=== PATIENT | female | born 1960 | race Asian ===

== ENCOUNTER → 2023-10-02 | Emergency (ER) | payer BC ==
[~2023-10-02] MED LIST: MECLIZINE HCL 12.5 MG TAB ONE
--- NOTE | 2023-10-02 13:21 | RAD REPORT ---
EXAM DESCRIPTION: CT - Head Brain Wo Cont - 10/02/2023 1:10 pm CLINICAL HISTORY: DIZZINESS Headache, dizziness, nausea COMPARISON: No comparisons TECHNIQUE: All CT scans are performed using dose optimization technique as appropriate and may inclu de automated exposure control or mA/KV adjustment according to patient size. FINDINGS: No intracranial hemorrhage, hydrocephalus or extra-axial fluid collection.No areas of brai n edema or evidence of midline shift. The paranasal sinuses and mastoids are clear. The calvarium is intact. IMPRESSION: No acute intracranial abnormality.
[2023-10-02 14:44] LABS: Absolute Eosinophils 0.2 K/uL (0-0.5); Absolute Lymphocytes (CBC) 3.1 K/uL (0.7-4.9); Absolute Monocytes 0.4 K/uL (0.1-1.3); Absolute Neutrophil 4.3 K/uL (1.8-8.0); Basophils % 0.3 % (0-1.3); Eosinophils % 2.5 % (0-4.4); Hematocrit 33.6 % (36.0-45.0); Hemoglobin 11.3 g/dL (12.0-15.0); Lymphocytes % 38.2 % (15.3-44.8); MCH 30.1 pg (27.0-35.0); MCHC 33.7 g/dL (32.0-36.0); MCV 89.4 fL (80-100); MPV 8.5 fL (7.6-11.3); Monocytes % 5.1 % (3.3-12.3); Neutrophils % 53.9 % (41.7-73.7); Platelets 254 thou/uL (152-406); RBC Red Blood Cell Count 3.76 M/uL (3.86-4.86); Red Cell Distribution Width 13.4 % (12.1-15.2)
[2023-10-02 14:53] LABS: ALT/SGPT 29 U/L (13-56); AST/SGOT 14 U/L (15-37); Albumin 3.8 g/dL (3.4-5.0); Albumin/Globulin Ratio 0.9 (1.1-1.8); Alkaline Phosphatase 83 U/L (45-117); Anion Gap 10.8 mEq/L (5.0-15.0); BUN Blood Urea Nitrogen 14 mg/dL (7-18); Bicarbonate 24 mEq/L (21-32); Bilirubin Total 0.4 mg/dL (0.2-1.0); Globulin 4.1 g/dL (2.3-3.5); Glomerular Filtration Rate 60 ml/min (=/>90); Glucose Level 176 mg/dL (74-106); Magnesium 1.9 mg/dL (1.6-2.4); Potassium 3.8 mEq/L (3.5-5.1); Protein, Total 7.9 g/dL (6.4-8.2); Sodium Level 140 mEq/L (136-145); Troponin High Sensitivity 3.7 pg/mL (<58.9)
[2023-10-02 14:54] LABS: Bilirubin Direct < 0.1 mg/dL (0-0.2); Bilirubin Indirect, Calculated ND mg/dL (0.2-0.8)
--- NOTE | 2023-10-02 14:58 | ER ---
Nurse's Notes [facility] Name: Dayanara Son Age: 62 yrs Sex: Female : 1960 Arrival Date: 10/02/2023 Time: 12:12 Bed 12 Private MD: Diagnosis: Peripheral vertigo, headache Presentation: 10/01 12:26 Chief complaint: Patient states: LAU, dizzy, nausea, not feeling well since Sunday. ll1 Coronavirus screen: Client denies travel out of the [place] in the last 14 days. At this time, the client does not indicate any symptoms associated with coronavirus-19. Ebola Screen: Patient denies travel to an Ebola-affected area in the 21 days before illness onset. Initial Sepsis Screen: Does the patient meet any 2 criteria? No. Patient's initial sepsis screen is negative. Does the patient have a suspected source of infection? No. Patient's initial sepsis screen is negative. Risk Assessment: Do you want to hurt yourself or someone else? Patient reports no desire to harm self or others. Onset of symptoms was September 30, 2023. 12:26 Method Of Arrival: Ambulatory ll1 12:26 Acuity: CALLY 3 ll1 Triage Assessment: 12:27 General: Appears uncomfortable, Behavior is calm, cooperative, appropriate for age. ll1 Pain: Complains of pain in head Pain currently is 7 out of 10 on a pain scale. Pain began 4 hours ago. Neuro: Reports dizziness, headache. GI: Reports nausea. 15:05 Headache History: Denies prior headaches. Pain: Also complains of no other associated tl4 symptoms. Historical: - Allergies: 12:25 No Known Allergies; ll1 - PMHx: 12:25 Diabetes mellitus; Hypercholesterolemia; ll1 - PSHx: 12:25 None; ll1 - Immunization history:: Adult Immunizations up to date. - Social history:: Smoking status: Patient denies any tobacco usage or history of. Screenin:31 [facility] ED Fall Risk Assessment (Adult) History of falling in the last 3 months, tl4 including since admission No falls in past 3 months (0 pts) Confusion or Disorientation No (0 pts) Intoxicated or Sedated No (0 pts) Impaired Gait No (0 pts) Mobility Assist Device Used No (0 pt) Altered Elimination No (0 pt) Score/Fall Risk Level 0 - 2 = Low Risk Oriented to surroundings, Maintained a safe environment, Educated pt \T\ family on fall prevention, incl call for assistance when getting out of bed, Assessed \T\ reinforced patient's understanding of fall precautions, Hourly rounding (assess needs \T\ fall precautionary measures) done, Used ambulatory aids as needed (educated on \T\ assisted with), Used gait belt as appropriate. Abuse screen: Denies threats or abuse. Denies injuries from another. Nutritional screening: No deficits noted. Tuberculosis screening: No symptoms or risk factors identified. Assessment: 13:11 Reassessment: In CT. Will go to room 12 afterwards. hb 13:45 General: Appears in no apparent distress. Behavior is flat. Pain: Denies pain. Neuro: tl4 Level of Consciousness is awake, alert, obeys commands, Oriented to person, place, time, situation, Moves all extremities. Speech is normal, Facial symmetry appears normal, Reports dizziness. Cardiovascular: Capillary refill < 3 seconds Patient's skin is warm and dry. Rhythm is sinus rhythm. Respiratory: Airway is patent Respiratory effort is even, unlabored, Respiratory pattern is regular, symmetrical, Breath sounds are clear bilaterally. GI: No deficits noted. No signs and/or symptoms were reported involving the gastrointestinal system. : No deficits noted. No signs and/or symptoms were reported regarding the genitourinary system. EENT: No deficits noted. No signs and/or symptoms were reported regarding the EENT system. Derm: No deficits noted. No signs and/or symptoms reported regarding the dermatologic system. Musculoskeletal: No deficits noted. No signs and/or symptoms reported regarding the musculoskeletal system. 14:31 Reassessment: Patient and/or family updated on plan of care and expected duration. Pain tl4 level reassessed. Patient is alert, oriented x 3, equal unlabored respirations, skin warm/dry/pink. Pt states dizziness is much better. MD Haynes aware Patient states symptoms have improved. 15:04 Reassessment: Patient and/or family updated on plan of care and expected duration. Pain tl4 level reassessed. Patient is alert, oriented x 3, equal unlabored respirations, skin warm/dry/pink. Patient states feeling better. Vital Signs: 12:26 BP 158 / 90; Pulse 84; Resp 18; Temp 97.5; Pulse Ox 100% ; Weight 62 kg; Height 5 ft. 6 ll1 in. ; Pain 7/10; 14:30 BP 143 / 79; Pulse 71; Resp 18; Pulse Ox 96% on R/A; Pain 0/10; tl4 15:04 BP 134 / 75; Pulse 66; Resp 16; Temp 97.5(TE); Pulse Ox 97% on R/A; Pain 0/10; tl4 12:26 Body Mass Index 22.06 (62.00 kg, 167.64 cm) ll1 12:26 Pain Scale: Adult ll1 14:30 Pain Scale: Adult tl4 15:04 Pain Scale: Adult tl4 ED Course: 12:18 Patient arrived in ED. mg5 12:27 Triage completed. ll1 12:27 Arm band placed on. ll1 12:41 Miguel Haynes MD is Attending Physician. sp3 13:11 CT Head Brain wo Cont In Process Unspecified. EDMS 13:38 Brendan Davis, RN is Primary Nurse. tl4 14:28 Basic Metabolic Panel Sent. tl4 14:28 CBC with Diff Sent. tl4 14:28 LFT's Sent. tl4 14:28 Magnesium Sent. tl4 14:28 Troponin HS Sent. tl4 14:29 Initial lab(s) drawn, by me, sent to lab. Inserted saline lock: 22 gauge in left tl4 forearm, using aseptic technique. Blood collected. 14:32 Patient has correct armband on for positive identification. Placed in gown. Bed in low tl4 position. Call light in reach. Side rails up X2. Adult w/ patient. Provided Education on: ED process. Client placed on continuous cardiac and pulse oximetry monitoring. NIBP monitoring applied. business education instructor on. Door closed. Noise minimized. Lights dimmed. Moved to private room. Warm blanket given. 15:05 No provider procedures requiring assistance completed. IV discontinued, intact, tl4 bleeding controlled, No redness/swelling at site. Pressure dressing applied. Administered Medications: 13:57 Drug: Meclizine PO 25 mg PO once Route: PO; tl4 14:28 Follow up: Response: No adverse reaction; Other tl4 Medication: 14:31 VIS not applicable for this client. tl4 Outcome: 14:57 Discharge ordered by . sp3 15:10 Discharged to home ambulatory, with family, tl4 15:10 Condition: stable 15:10 Discharge instructions given to patient, family, Instructed on discharge instructions, follow up and referral plans. medication usage, Demonstrated understanding of instructions, follow-up care, medications, Prescriptions given X 1, 15:11 Patient left the ED. tl4 Signatures: Dispatcher [employer] EDMS Alyce Irvin RN RN hb Lewis, Lynsay, RN RN ll1 Miguel Haynes MD MD 3 Dianna Grant [facility] Brendan Davis RN RN tl4
--- NOTE | 2023-10-02 14:58 | EDPHYS ---
Physician Documentation [facility] Name: Dayanara Son Age: 62 yrs Sex: Female : 1960 Arrival Date: 10/02/2023 Time: 12:12 Bed 12 Private MD: ED Physician Miguel Haynes HPI: 10/01 14:32 This 62 yrs old Female presents to ER via Ambulatory with complaints of sp3 Dizziness, Headache. 14:32 62-year-old female with a history of diabetes and hyperlipidemia now presents ED with sp3 chief complaint headache and dizziness described as vertigo with room spinning that started earlier today. No prior history of similar symptoms. She denies any trauma, ear ringing, vision changes, facial droop, weakness of any kind, paresthesias, numbness or tingling, dysarthria, memory loss, prior stroke, cardiovascular disease, or any other signs or symptoms on ROS or history at this time.. Historical: - Allergies: 12:25 No Known Allergies; ll1 - PMHx: 12:25 Diabetes mellitus; Hypercholesterolemia; ll1 - PSHx: 12:25 None; ll1 - Immunization history:: Adult Immunizations up to date. - Social history:: Smoking status: Patient denies any tobacco usage or history of. ROS: 14:33 Constitutional: Negative for fever, chills, and weight loss, Eyes: Negative for injury, sp3 pain, redness, and discharge, ENT: Negative for injury, pain, and discharge, Neck: Negative for injury, pain, and swelling, Cardiovascular: Negative for chest pain, palpitations, and edema, Respiratory: Negative for shortness of breath, cough, wheezing, and pleuritic chest pain, Abdomen/GI: Negative for abdominal pain, nausea, vomiting, diarrhea, and constipation, Back: Negative for injury and pain, MS/Extremity: Negative for injury and deformity, Skin: Negative for injury, rash, and discoloration, Psych: Negative for depression, anxiety, suicide ideation, homicidal ideation, and hallucinations, Allergy/Immunology: Negative for hives, rash, and allergies, Endocrine: Negative for neck swelling, polydipsia, polyuria, polyphagia, and marked weight changes, Hematologic/Lymphatic: Negative for swollen nodes, abnormal bleeding, and unusual bruising, 14:33 All other systems are negative, Exam: 14:34 Constitutional: This is a well developed, well nourished patient who is awake, alert, sp3 and in no acute distress. Head/Face: Normocephalic, atraumatic. Eyes: Pupils equal round and reactive to light, extra-ocular motions intact. Lids and lashes normal. Conjunctiva and sclera are non-icteric and not injected. Cornea within normal limits. Periorbital areas with no swelling, redness, or edema. ENT: Nares patent. No nasal discharge, no septal abnormalities noted. External auditory canals are clear. Oropharynx with no redness, swelling, or masses, exudates, or evidence of obstruction, uvula midline. Mucous membranes moist. Neck: Trachea midline, no thyromegaly or masses palpated, and no cervical lymphadenopathy. Supple, full range of motion without nuchal rigidity, or vertebral point tenderness. No Meningismus. Chest/axilla: Normal chest wall appearance and motion. Nontender with no deformity. No lesions are appreciated. Cardiovascular: Regular rate and rhythm with a normal S1 and S2. No gallops, murmurs, or rubs. Normal PMI, no JVD. No pulse deficits. Respiratory: Lungs have equal breath sounds bilaterally, clear to auscultation and percussion. No rales, rhonchi or wheezes noted. No increased work of breathing, no retractions or nasal flaring. Abdomen/GI: Soft, non-tender, with normal bowel sounds. No distension or tympany. No guarding or rebound. No evidence of tenderness throughout. Back: No spinal tenderness. No costovertebral tenderness. Full range of motion. Skin: Warm, dry with normal turgor. Normal color with no rashes, no lesions, and no evidence of cellulitis. MS/ Extremity: Pulses equal, no cyanosis. Neurovascular intact. Full, normal range of motion. Psych: Awake, alert, with orientation to person, place and time. Behavior, mood, and affect are within normal limits. 14:34 Neuro: Grossly normal neurological exam. NIH stroke scale 0. Mild horizontal nystagmus noted. Patient is vertiginous on movement., 14:53 ECG was reviewed by the Attending Physician. EKG demonstrates normal sinus rhythm at 70 sp3 bpm with normal intervals, normal QRS, normal axis, normal ST's ST segments without evidence of acute ischemia. Vital Signs: 12:26 BP 158 / 90; Pulse 84; Resp 18; Temp 97.5; Pulse Ox 100% ; Weight 62 kg; Height 5 ft. 6 ll1 in. ; Pain 7/10; 14:30 BP 143 / 79; Pulse 71; Resp 18; Pulse Ox 96% on R/A; Pain 0/10; tl4 15:04 BP 134 / 75; Pulse 66; Resp 16; Temp 97.5(TE); Pulse Ox 97% on R/A; Pain 0/10; tl4 12:26 Body Mass Index 22.06 (62.00 kg, 167.64 cm) ll1 12:26 Pain Scale: Adult ll1 14:30 Pain Scale: Adult tl4 15:04 Pain Scale: Adult tl4 MDM: 13:01 Patient medically screened. sp3 14:34 Data reviewed: vital signs, nurses notes, lab test result(s), radiologic studies. ED sp3 course: 62-year-old female with vertigo and headache. Differential diagnosis includes generalized headache, migraine, ICH, central versus peripheral vertigo, TIA/CVA spectrum, among others. I believe the symptoms however are due to peripheral vertigo. Will obtain CT scan of the head, laboratory values and administer meclizine as both diagnostic and therapeutic tool.. 14:35 ED course: Patient evaluated after 1 hour of taking meclizine. Patient is substantially sp3 improved and feels much better. CT scan of the head is negative. Laboratory values are normal. We will safely discharge patient home on p.o. meclizine and follow-up with her PCP.. 10/01 13:00 Order name: Basic Metabolic Panel; Complete Time: 14:57 3 10/01 13:00 Order name: CBC with Diff; Complete Time: 14:54 3 10/01 13:00 Order name: LFT's; Complete Time: 14:57 3 10/01 13:00 Order name: Magnesium; Complete Time: 14:57 3 10/01 13:00 Order name: Troponin HS; Complete Time: 14:57 3 10/01 13:00 Order name: CT Head Brain wo Cont; Complete Time: 13:24 3 10/01 13:00 Order name: EKG; Complete Time: 13:01 3 10/01 13:00 Order name: Cardiac monitoring; Complete Time: 13:57 sp3 10/01 13:00 Order name: EKG - Nurse/Tech; Complete Time: 14:28 sp3 10/01 13:00 Order name: IV Saline Lock; Complete Time: 14:28 sp3 10/01 13:00 Order name: Labs collected and sent; Complete Time: 14:28 sp3 Administered Medications: 13:57 Drug: Meclizine PO 25 mg PO once Route: PO; tl4 14:28 Follow up: Response: No adverse reaction; Other tl4 Disposition Summary: 10/02/23 14:57 Discharge Ordered Notes: Location: Home sp3 Condition: Stable sp3 Diagnosis - Peripheral vertigo, headache sp3 Followup: sp3 - With: Private Physician - When: Upon discharge from the Emergency Department - Reason: Continuance of care Discharge Instructions: - Discharge Summary Sheet sp3 - Vertigo sp3 Forms: - Medication Reconciliation Form sp3 - Thank You Letter sp3 - Antibiotic Education sp3 - Prescription Opioid Use sp3 - Patient Portal Instructions sp3 - Leadership Thank You Letter sp3 Prescriptions: - Meclizine 25 mg Oral Tablet - take 1 tablet ORAL route every 8 hours As needed; 30 tablet; Refills: 0, sp3 Product Selection Permitted Signatures: Dispatcher [employer] Yemi Godinez RN RN ll1 Miguel Haynes MD MD sp3 Brendan Davis RN RN tl4
[2023-10-02 15:34] VITALS: BP 134/75; TEMP 97.5; O2SAT 97
--- NOTE | 2023-10-03 12:48 | EKG ---
Test Date: 2023-10-02 Test Time: 13:55:55 [place] Manager: TL MEASUREMENT RESULTS: Intervals: Rate: 69 OH: 144 QRSD: 74 QT: 400 QTc: 428 [place]: P: 55 OH: 144 QRS: 45 T: 43 INTERPRETIVE STATEMENTS: Normal sinus rhythm Normal ECG No previous ECG available for comparison Electronically Signed On 10-03-23 12:45:44 CDT by Patrice Adkins
== END ==
LOC: ER 12:12
DX: H81.399 Other peripheral vertigo, unspecified ear (principal); E11.9 Type 2 diabetes mellitus without complications; E78.00 Pure hypercholesterolemia, unspecified
CPT/HCPCS: 93005; 85025; 80048; 36415; 83735; 80076; 84484; 70450; J8597; 99284